=== PATIENT | female | born 1935 | race Caucasian/White ===

== ENCOUNTER → 2017-12-16 | Outpatient (CLI) | payer OTHER, MEDICARE ==
[~2017-12-16] VITALS: Ht 157.5 cm; Wt 93.0 kg
[~2017-12-16] MED LIST: ACETAMINOPHEN325 M1 PO; ALLEGRA180 MG PO; ALLEGRA30 MG PO; ASPIR 8181 MG PO; BUFFERIN 81 MG81 MG; CENTRUM SILVER1 EAC4 PO; CENTRUM TABLET1 TAB PO; DESYREL50 MG PO; DILAUDID 2 MG TA2 MG PO; FENOFIBRATE160 MG PO; FENTANYL PA25 MCG/HR TRANSDERM; FISH OIL 1,001000 M2 PO; FOSAMAX5 MG PO; FUROSEMIDE 40 M40 M1 PO; FUROSEMIDE 40 M40 MG PO; HYDROCODON-ACE1 EAC1 PO; HYDROCODON-ACE1 EAC8 PO; IRON; IRON325 PO; KLOR-CON 1010 MEQ PO; LEVOTHYROXIN0.112 M1 PO; LEVOTHYROXIN0.125 M1 PO; LEXAPRO20 MG PO; LIPITOR 20 MG T20 M1 PO; LIPITOR10 MG PO; MELOXICAM7.5 MG PO; METAMUCIL197.2 GM PO; MOBIC7.5 MG PO; MULTIVITAMINS; NABUMETONE 500500 M1 PO; NEURONTIN 300300 M1 PO; OMEPRAZOLE 20 M20 M1 PO; OMEPRAZOLE 20 M20 MG PO; PEPTO-BISMOL262 M1 PO; POTASSIUM CHLO10 ME1 PO; PRAVACHOL40 MG PO; PRAVACHOL80 MG PO; PRILOSEC 20 MG20 MG PO; QUINU10 PD PO; RESTORIL15 MG PO; RESTORIL30 MG PO; RESTORIL7.5 MG PO; SYNTHROID137 MC1 PO; TRAZODONE 150150 M1 PO; TUMS CHEWA500 MG/11 PO; TUMS PO; WELLBUTRIN SR150 MG PO; WELLBUTRIN XL150 M1 PO; ZYRTEC10 M2 PO
--- NOTE | ~2017-12-16 | CATHLAB ---
[facility] [address] [place] [address] INVASIVE PROCEDURE REPORT Name: JANEL JAMES Room #: REG COLT Terrell#: [id number] Admission: 12/16/17 Attend Phys: Faustino Reece, Discharge: Date of : 37 Date of Service: 12/16/17 1723 Report #: [id number] THIS REPORT FOR: //name// APPROVED REPORT Study performed: 12/16/2017 07:28:20 Patient Details Patient Status: Out-Patient Room #: The patient is a 82 year-old female Event Personnel Faustino Reece Cage Clerk, Derrell Casas RN, Amisha Aguilera RTR, DIANA Moore, Rolando Almazan Monitor Procedures Performed Coronary Angiography Only [id number] CORANG Aortogram Abdominal Peripheral Angio [id number] Indication Chest pain Procedure Narrative The Right Groin^ was infiltrated with 1% Lidocaine subcutaneous anesthesia. A PINNACLE 6FR Sheath #[id number] sheath was inserted into the RFA^. Coronary angiography was performed using coronary diagnostic catheters. The right coronary system was accessed and visualized with a JR4 catheter. The left coronary system was accessed and visualized with a JL4 catheter. An aortogram of the abdominal aorta was performed. Hemostasis was obtained with manual pressure following sheath removal without any complications. The patient tolerated the procedure well and there were no complications associated with the procedure. There was no hematoma. Intraoperative Conscious Sedation Sedation start time: 9.00 Case end Time: 9.42 Fentanyl 75 mcg Versed 2 mg Fluoro Time: 5966.00 minutes Dose: DAP 5353 cGycm2 596 mGy Contrast Type and Amount: Visipaque 85 ml Hemodynamics The aortic pressure is 133/70 mmHg with a mean of 94 mmHg. [facility] [address] [place] [address] INVASIVE PROCEDURE REPORT Name: JACOBJANEL Room #: [facility]#: [id number] Admission: 12/16/17 Attend Phys: Faustino Reece, Discharge: Date of : 37 Date of Service: 12/16/17 1723 Report #: [id number] Conclusion #1 calcified left main moderate size with distal tapered narrowing of 30% giving rise to LAD and circumflex #2 LAD proximal calcification 3040% proximal mild disease distally extends around the apex #3 circumflex OM nondominant moderate size with minimal irregularity and appears to be a proximal stent remotely placed widely patent in the proximal circumflex #4 dominant right previously placed proximal stent with mild restenosis there is moderate disease in the distal third 1670% irregularities with calcification diffusely disease giving rise to small PDA and ERINN would not recommend intervention but continued medical therapy for this vessel #5 abdominal aortogram was performed. There is extensive tortuosity in the iliac system. The abdominal aorta and iliac were patent without evidence of aneurysm mild plaquing was noted. No LV gram was performed due to the significant tortuosity. Recommendations and plan; continue aggressive risk factor modification. No indication for coronary intervention. Moderately to moderately severe RCA disease would treat this medically. <ELECTRONICALLY SIGNED> By: Faustino Reece MD, [facility] 12/16/17 172 22 22 Faustino Reece MD, FAC /INF
--- NOTE | ~2017-12-16 | H ---
[facility] [place] [address] HISTORY AND PHYSICAL Name: JANEL JAMES Room #: REG PAUL Nidhi#: [id number] Admission: 12/16/17 Attend Phys: Faustino Reece MD, Discharge: Date of : 37 Report #: [id number] THIS REPORT FOR: //name// CC: Faustino Moyer DATE OF SERVICE: 12/16/2017 HISTORY OF PRESENT ILLNESS: The patient is an 82-year-old female who is well known to me who I followed for a number of years. Is admitted today for cardiac catheterization with some questionable recurrent chest pain and abnormal stress test. She has been compliant with medications. She has been more fatigued lately. She is more difficult to get around. 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 She has a history of remote stent in 1994 to the LAD and the circumflex in 2002. She has been compliant with her medications. Stress test suggests an area of ischemia, which is new since last test. She does have as an anginal equivalent some occasional pressure and fatigue. MEDICATIONS: Continued to be atorvastatin 40, baby aspirin, Wellbutrin, Tums, Zyrtec, Mucinex, Lexapro, iron, Lasix 40, irbesartan 300, hydrocodone p.r.n., omeprazole, potassium, Restoril, trazodone p.r.n. at night. PAST MEDICAL HISTORY: Positive for coronary artery disease, COPD, DJD, history of thyroid cancer with resection, hypercholesterolemia, hypertension, hysterectomy, thyroidectomy, knee arthroplasty, carpal tunnel release. ALLERGIES: DYAZIDE, TRIAMTERENE, MORPHINE. SOCIAL HISTORY: She is , former tobacco user, social alcohol use. She is a caregiver for her . REVIEW OF SYSTEMS: Essentially negative as stated above, arthritis issues also limit her. PHYSICAL EXAMINATION: VITAL SIGNS: Blood pressure is 132/78, pulse is 70s. HEENT: Eyes reveal xanthelasmas. Pharynx is clear. NECK: Shows preserved upstrokes without JVD or bruits. LUNGS: Clear with expiratory phase, slightly diminished in the right base. CARDIOVASCULAR: Regular rate and rhythm, S1, S2 distant. ABDOMEN: Soft. No HSM or abdominal bruit. EXTREMITIES: Reveal trace edema. There are some mild venous stasis insufficiency. NEUROLOGIC: Intact. MUSCULOSKELETAL: Generalized osteoarthritic changes. [facility] [address] [place] [address] HISTORY AND PHYSICAL Name: JANEL JAMES Room #: REG CLI Delmer#: [id number] Admission: 12/16/17 Attend Phys: Faustino Reece MD, Discharge: Date of : 37 Report #: [id number] ASSESSMENT: 1. Coronary artery disease with remote stents to left anterior descending and circumflex, now with abnormal stress test accelerating anginal pattern. 2. Hypertension. 3. Hypercholesterolemia. 4. Degenerative joint disease. 5. Mild aortic root dilatation. RECOMMENDATIONS AND PLAN: We will proceed to the catheterization lab to delineate the anatomy and intervention if indicated. Risks, benefits, alternatives were discussed. She does elect to proceed. By: [id number] Faustino Reece MD, FACC /nt
[2017-12-16 07:14] VITALS: BP 137/87
[2017-12-16 07:44] LABS: HEMATOCRIT 40.2 % (37.0-47.0); HEMOGLOBIN 13.7 gm/dL (12.0-15.0); MCH 30.1 pg (26.0-34.0); MCHC 34.1 g/dL (28.0-37.0); MCV 88.3 fL (80.0-100.0); RBC 4.56 mil/uL (4.20-5.00); RDW 12.8 % (10.5-14.5); WBC 8.5 thou/uL (4.0-11.0)
[2017-12-16 07:51] LABS: CALCIUM 8.5 mg/dL (8.5-10.1); CREATININE 1.2 mg/dL (0.6-1.0); POTASSIUM 3.9 mmol/L (3.5-5.1)
== END | disposition home or self-care (01) ==
LOC: CATH 06:56
PROVIDERS: Internal Medicine Cardiovascular Disease
DX: I25.10 Atherosclerotic heart disease of native coronary artery without angina pectoris (principal); I25.82 Chronic total occlusion of coronary artery; I77.1 Stricture of artery; I10 Essential (primary) hypertension; E78.00 Pure hypercholesterolemia, unspecified; J44.9 Chronic obstructive pulmonary disease, unspecified; M19.90 Unspecified osteoarthritis, unspecified site; G47.33 Obstructive sleep apnea (adult) (pediatric); E66.09 Other obesity due to excess calories; Z90.710 Acquired absence of both cervix and uterus; Z98.890 Other specified postprocedural states; Z79.899 Other long term (current) drug therapy; Z85.850 Personal history of malignant neoplasm of thyroid; Z96.652 Presence of left artificial knee joint; Z96.642 Presence of left artificial hip joint; Z96.611 Presence of right artificial shoulder joint; Z95.5 Presence of coronary angioplasty implant and graft; Z82.49 Family history of ischemic heart disease and other diseases of the circulatory system; Z87.891 Personal history of nicotine dependence